=== PATIENT | female | born 1995 | race Caucasian/White ===

== ENCOUNTER 2023-02-17 19:10 | Emergency (ER) | payer OTHER ==
[2023-02-17 19:26] VITALS: O2SAT 100
[2023-02-17 19:33] LABS: BILIRUBIN,URINE NEGATIVE (NEGATIVE); GLUCOSE, URINE (UA) NEGATIVE (NEGATIVE); KETONES,URINE (UA) NEGATIVE (NEGATIVE); LEUKOCYTE ESTERASE, URINE NEGATIVE (NEGATIVE); NITRITE,URINE NEGATIVE (NEGATIVE); OCCULT BLOOD,URINE NEGATIVE (NEGATIVE); PROTEIN,URINE TRACE mg/dL (NEGATIVE); UROBILINOGEN,URINE 0.2 (NORMAL) E.U./dL (NORMAL)
[2023-02-17] MEDS ORDERED: MAG HYDROX/AL HYDROX/SIMETH 30 ML UDC PO STA (19:35)
[2023-02-17] MEDS ORDERED: LIDOCAINE VISCOUS 2% 15 ML UDC MM STA (19:35)
--- NOTE | 2023-02-17 19:35 | ED Physician Documentation ---
PD HPI ABD PAIN - Stated complaint Stated Complaint: STOMACH PX/BODY CHILLS - Chief complaint Chief Complaint: Abd Pain - History obtained from History obtained from: Patient - Additional information Additional information: Otherwise healthy 27-year-old with history of has had 5 days of upper abdominal pain worse about 15 minutes after eating. It is not worse after drinking water. She has had chills with it but no measured fevers. PD PAST MEDICAL HISTORY - Past Medical History Past Medical History: Yes Cardiovascular: None Respiratory: None Neuro: None Endocrine/Autoimmune: None GI: None ARC WELDING MACHINE OPERATOR: None : None HEENT: None Psych: Anxiety Musculoskeletal: None Derm: None - Past Surgical History Past Surgical History: Yes /ARC WELDING MACHINE OPERATOR: section - Present Medications Home Medications: Ambulatory Orders Medication Instructions Recorded Confirmed Omeprazole 40 mg PO DAILY #30 cap 02/17/23 - Allergies Allergies/Adverse Reactions: Allergies Allergy/AdvReac Type Severity Reaction Status Date / Time No Known Drug Allergies Allergy Verified 02/17/23 19:19 - Social History Does the pt smoke?: No Smoking Status: Never smoker Does the pt drink ETOH?: No Does the pt have substance abuse?: No - Immunizations Immunizations are current?: Yes - POLST Patient has POLST: No PD ED PE NORMAL - Vitals Vital signs reviewed: Yes - General General: Alert and oriented X 3, No acute distress - Abdomen Abdomen: Normal bowel sounds, Soft, Other (Minimal epigastric tenderness that seems to spare the right upper and left upper quadrants. Negative Roldan sign. No lower abdominal tenderness.) - Neuro Neuro: Alert and oriented X 3, Normal speech Results - Vitals Vitals: Vital Signs - 24 hr 02/17/23 02/17/23 19:19 20:50 Temperature 36.5 C Heart Rate 83 82 Respiratory 16 18 Rate Blood Pressure 111/72 95/63 O2 Saturation 100 100 Oxygen O2 Source Room air - Labs Labs: Laboratory Tests 02/17/23 02/17/23 02/17/23 19:27 19:27 19:38 WBC 6.7 RBC 4.45 Hgb 12.0 Hct 38.2 MCV 85.8 MCH 27.0 MCHC 31.4 L RDW 13.4 Plt Count 276 MPV 10.8 Neut # (Auto) 3.9 Lymph # (Auto) 2.1 [place] # (Auto) 0.4 Eos # (Auto) 0.2 Baso # (Auto) 0.1 Absolute Nucleated RBC 0.00 Nucleated RBC % 0.0 Sodium Potassium Chloride Carbon Dioxide Anion Gap BUN Creatinine Estimated GFR (MDRD) Glucose Calcium Total Bilirubin AST ALT Alkaline Phosphatase Total Protein Albumin Globulin Albumin/Globulin Ratio Lipase Urine Color YELLOW Urine Clarity CLEAR Urine pH 8.0 H Ur Specific [place] 1.015 Urine Protein TRACE Urine Glucose (UA) NEGATIVE Urine Ketones NEGATIVE Urine Occult Blood NEGATIVE Urine Nitrite NEGATIVE Urine Bilirubin NEGATIVE Urine Urobilinogen 0.2 (NORMAL) Ur Leukocyte Esterase NEGATIVE Ur Microscopic Review NOT INDICATED Urine Culture Comments NOT INDICATED Urine HCG, Qual NEGATIVE 02/17/23 19:38 WBC RBC Hgb Hct MCV MCH MCHC RDW Plt Count MPV Neut # (Auto) Lymph # (Auto) [place] # (Auto) Eos # (Auto) Baso # (Auto) Absolute Nucleated RBC Nucleated RBC % Sodium 139 Potassium 3.9 Chloride 105 Carbon Dioxide 28 Anion Gap 6.0 BUN 14 Creatinine 0.5 L Estimated GFR (MDRD) 148 Glucose 106 H Calcium 9.4 Total Bilirubin 0.2 AST 14 ALT 11 Alkaline Phosphatase 62 Total Protein 7.5 Albumin 4.7 Globulin 2.8 Albumin/Globulin Ratio 1.7 Lipase 69 Urine Color Urine Clarity Urine pH Ur Specific [place] Urine Protein Urine Glucose (UA) Urine Ketones Urine Occult Blood Urine Nitrite Urine Bilirubin Urine Urobilinogen Ur Leukocyte Esterase Ur Microscopic Review Urine Culture Comments Urine HCG, Qual PD Medical Decision Making - ED course ED course: 27-year-old with epigastric pain, exam not really consistent with gallbladder or other serious etiology. CBC, CMP, urinalysis normal. After the administration of Maalox and lidocaine, "GI cocktail" she was pain-free. She was counseled on dietary restrictions for gastritis. Departure - Departure Disposition: 01 Home, Self Care Clinical Impression: Gastritis Qualifiers: Gastritis type: unspecified gastritis Chronicity: acute Gastritis bleeding: without bleeding Qualified Code(s): K29.00 - Acute gastritis without bleeding Condition: Good Record reviewed to determine appropriate education?: Yes Instructions: ED Gastritis Prescriptions: Omeprazole 40 mg PO DAILY #30 cap Comments: The relief you had with the "GI cocktail" and other aspects of your pain are suggestive of gastritis. You should avoid nonsteroidal anti-inflammatory drugs like ibuprofen or Aleve. Also continue to avoid caffeine, alcohol, nicotine. Call your doctor to arrange a follow-up appointment, make the next available appointment. In the interim, return anytime if worse or if new symptoms develop. Forms: PCP List
[2023-02-17 19:36] LABS: CLARITY,URINE CLEAR (CLEAR)
[2023-02-17 19:37] LABS: HCG UR QUAL NEGATIVE
[2023-02-17 19:44] LABS: BASOPHILS # (AUTO) 0.1 10^3/uL (0.0-0.1); BASOPHILS % (AUTO) 0.8 %; EOSINOPHILS # (AUTO) 0.2 10^3/uL (0.0-0.7); EOSINOPHILS % (AUTO) 2.4 %; HCT - HEMATOCRIT 38.2 % (37.0-47.0); LYMPHOCYTES # (AUTO) 2.1 10^3/uL (1.5-3.5); LYMPHOCYTES % (AUTO) 31.4 %; MEAN CORPUSCULAR HGB CONC 31.4 g/dL (32.0-36.0); MEAN CORPUSCULAR VOLUME 85.8 fL (81.0-99.0); MEAN PLATELET VOLUME 10.8 fL (7.9-10.8); MONOCYTES # (AUTO) 0.4 10^3/uL (0.0-1.0); MONOCYTES % (AUTO) 6.2 %; NEUTROPHILS # (AUTO) 3.9 10^3/uL (1.5-6.6); NEUTROPHILS % (AUTO) 58.9 %; PLT - PLATELET COUNT 276 10^3/uL (130-450); RED BLOOD COUNT 4.45 10^6/uL (4.20-5.40); RED CELL DISTRIBUTION WIDTH 13.4 % (12.0-15.0); WHITE BLOOD COUNT 6.7 x10^3/uL (4.8-10.8)
[2023-02-17 19:59] LABS: ALBUMIN 4.7 g/dL (3.2-5.5); ALBUMIN/GLOBULIN RATIO 1.7 (1.0-2.2); BILIRUBIN,TOTAL 0.2 mg/dL (0.2-1.0); CALCIUM 9.4 mg/dL (8.5-10.3); CREATININE 0.5 mg/dL (0.6-1.3); POTASSIUM 3.9 mmol/L (3.5-4.5); TOTAL PROTEIN 7.5 g/dL (6.4-8.9)
[2023-02-17] MEDS ORDERED: LIDOCAINE 2% URO-JET 5 ML SYRINGE UR STA (20:14)
[2023-02-17] MEDS ORDERED: PANTOPRAZOLE 40 MG TABLET PO STA (20:52)
[2023-02-17 21:50] VITALS: BP 105/57
== END 2023-02-17 21:43 | disposition home or self-care (01) ==
LOC: ED 19:10
DX: K29.00 Acute gastritis without bleeding (principal)
CPT/HCPCS: 36415; 80053; 81003; 81025; 83690; 85025; 99283; 99284; A9270; 81001; 87086